=== PATIENT | female | born 2000 | race Caucasian/White ===

== ENCOUNTER 2023-03-30 21:50 | Emergency (ER) | payer OTHER ==
[~2023-03-30] VITALS: Ht 156.2 cm; Wt 67.1 kg
[2023-03-30 22:00] VITALS: BP_SYST 127
[2023-03-30] MEDS ORDERED: KETOROLAC TROMETHAMINE 30 MG VIAL IM ONE (23:00)
[2023-03-31] MEDS ORDERED: NAPR-1172 PO (02:07)
[2023-03-31] MEDS ORDERED: ACET-2634 PO (02:07)
[2023-03-31 02:12] VITALS: BP_SYST 122
== END 2023-03-31 02:13 | disposition home or self-care (01) ==
LOC: SED 21:50
DX: M25.512 Pain in left shoulder (principal); J45.909 Unspecified asthma, uncomplicated; Z79.899 Other long term (current) drug therapy
CPT/HCPCS: 99285; 73200; 73030; 76376; 81025; 96372; J1885

== ENCOUNTER 2023-10-10 01:22 | Emergency (ER) | payer OTHER ==
[~2023-10-10] VITALS: Ht 154.9 cm; Wt 70.8 kg
[~2023-10-10 01:22] MED LIST: ACET-2634 PO; NAPR-1172 PO
[2023-10-10 01:31] VITALS: BP_SYST 123; PULSE 95; RESP 16; TEMP 97.9; O2SAT 99
[2023-10-10] MEDS ORDERED: DEXAMETHASONE SOD PHOSPHATE 4 MG/ML VIAL PO ONE (02:00)
[2023-10-10] MEDS ORDERED: IPRATROPIUM/ALBUTEROL SULFATE 3 ML AMPUL.NEB (DUONEB) INH ONE (02:00)
[2023-10-10 02:30] LABS: COVID19 ANTIGEN SOFIA FIA NEGATIVE (NEGATIVE)
[2023-10-10 02:40] LABS: INFLUENZA TYPE A Negative (NEGATIVE); INFLUENZA TYPE B NEGATIVE (NEGATIVE)
[2023-10-10] MEDS ORDERED: BENZ100C92 PO (02:41)
[2023-10-10] MEDS ORDERED: ACET1TAB93 PO (02:41)
[2023-10-10] MEDS ORDERED: AZIT500T10 PO (02:43)
[2023-10-10] MEDS ORDERED: AZITHROMYCIN 250 MG TABLET PO ONE (02:45)
[2023-10-10] MEDS ORDERED: BENZONATATE 100 MG CAPSULE (TESSALON) PO ONE (02:45)
[2023-10-10 02:53] VITALS: BP_SYST 142; PULSE 97; RESP 20; TEMP 97.9; O2SAT 97
== END 2023-10-10 02:53 | disposition home or self-care (01) ==
LOC: SED 01:22
DX: J40 Bronchitis, not specified as acute or chronic (principal); R05.9 Cough, unspecified; R06.02 Shortness of breath; R07.9 Chest pain, unspecified; Z79.899 Other long term (current) drug therapy; Z20.822 Contact with and (suspected) exposure to COVID-19
CPT/HCPCS: 99284; 71045; 87426; 36415; 94640; 87804 ×2; J1100; Q0144